=== PATIENT | female | born 1980 | race Caucasian/White ===

== ENCOUNTER 2023-06-10 11:10 | Emergency (ER) | payer OTHER ==
[2023-06-10 11:27] VITALS: TEMP 98.6; BMI 25.7
[2023-06-10] MEDS ORDERED: ALPRAZolam 0.25 MG TABLET ONE (11:56)
[2023-06-10] MEDS: ALPRAZolam 0.25 MG TABLET PO ONE (12:04)
[2023-06-10 13:48] VITALS: BP 130/80; PULSE 78; RESP 14
== END 2023-06-10 13:49 | disposition home or self-care (01) ==
LOC: JER 11:10
DX: R00.2 Palpitations (principal); F41.9 Anxiety disorder, unspecified
CPT/HCPCS: 93005; 93010; 99283-25

== ENCOUNTER 2023-06-18 12:19 | Emergency (ER) | payer OTHER ==
[2023-06-18 12:24] VITALS: TEMP 98; BMI 25.6
[2023-06-18 14:22] LABS: BASO % 0.8 % (0-2.0); EOS % 0.8 % (0-4.5); HEMATOCRIT 40.3 % (32.4-45.2); HEMOGLOBIN 13.1 GM/dL (10.7-15.3); LYMPH % 15.4 % (8-40); MCH 26.4 pg (25.7-33.7); MCHC 32.6 g/dl (32.0-36.0); MEAN PLT VOLUME 7.9 fl (7.5-11.1); MONO % 4.6 % (3.8-10.2); NEUT % 78.4 % (42.8-82.8); PLATELET COUNT 434 10^3/uL (134-434); RBC 4.98 M/mm3 (3.60-5.2); RDW 15.9 % (11.6-15.6); WHITE BLOOD COUNT 9.6 K/mm3 (4.0-10.0)
[2023-06-18 15:05] LABS: ALBUMIN 3.8 g/dl (3.4-5.0); BLOOD UREA NITROGEN 15.7 mg/dL (7-18)
[2023-06-18 15:08] LABS: CREATININE 0.8 mg/dL (0.55-1.3); INR 1.14 (0.83-1.09); PROTHROMBIN TIME (PATIENT) 13.2 SEC (9.7-13.0)
[2023-06-18 15:09] LABS: ACTIVATED PTT 28.9 SECONDS (25.2-36.5); BILIRUBIN,TOTAL 0.3 mg/dL (0.2-1); TOT PROT 7.8 g/dl (6.4-8.2)
[2023-06-18 15:54] VITALS: BP 129/75; RESP 14
[2023-06-21 10:19] VITALS: PULSE 98
== END 2023-06-18 15:54 | disposition home or self-care (01) ==
LOC: JER 12:19
DX: R00.2 Palpitations (principal); R53.1 Weakness
CPT/HCPCS: 36415; 80053; 84439; 84443; 85025; 85610; 85730; 93005; 93010; 99284-25

== ENCOUNTER 2023-06-20 20:53 | Emergency (ER) | payer OTHER ==
[2023-06-20 21:12] VITALS: BMI 25.6
[2023-06-20 22:12] LABS: BASO % 0.5 % (0-2.0); EOS % 0.6 % (0-4.5); HEMATOCRIT 37.8 % (32.4-45.2); HEMOGLOBIN 12.5 GM/dL (10.7-15.3); LYMPH % 16.7 % (8-40); MCH 26.6 pg (25.7-33.7); MEAN CELL VOLUME 80.5 fl (80-96); MONO % 6.4 % (3.8-10.2); NEUT % 75.8 % (42.8-82.8); PLATELET COUNT 441 10^3/uL (134-434); RDW 15.7 % (11.6-15.6); WHITE BLOOD COUNT 11.8 K/mm3 (4.0-10.0)
[2023-06-20] MEDS ORDERED: ACETAMINOPHEN 500 MG TABLET (FP) ONE (22:26)
[2023-06-20] MEDS: ACETAMINOPHEN 500 MG TABLET (FP) PO ONE (22:28)
[2023-06-20 22:33] LABS: POTASSIUM 4.1 mmol/L (3.5-5.1)
[2023-06-20 22:35] LABS: CALCIUM 9.4 mg/dL (8.5-10.1)
[2023-06-20 22:36] LABS: ALBUMIN 3.9 g/dl (3.4-5.0); BLOOD UREA NITROGEN 9.6 mg/dL (7-18)
[2023-06-20 22:39] LABS: CREATININE 0.7 mg/dL (0.55-1.3); INR 1.2 (0.83-1.09); PROTHROMBIN TIME (PATIENT) 13.9 SEC (9.7-13.0)
[2023-06-20 22:40] LABS: BILIRUBIN,TOTAL 0.3 mg/dL (0.2-1)
[2023-06-20 22:41] LABS: TOT PROT 7.7 g/dl (6.4-8.2)
[2023-06-20 22:42] LABS: ACTIVATED PTT 28.5 SECONDS (25.2-36.5)
[2023-06-21 01:00] VITALS: BP 119/67; PULSE 81; RESP 81; TEMP 97.8
== END 2023-06-21 02:07 | disposition home or self-care (01) ==
LOC: JER 20:53
DX: R07.9 Chest pain, unspecified (principal)
CPT/HCPCS: 36415; 71045-TC-FY; 71275-TC; 80053; 83690; 83735; 84439; 84443; 84484; 85025; 85379; 85610; 85730; 86850; 86900; 86901; 93005; 93010; 99285-25; Q9967

== ENCOUNTER 2023-12-04 04:41 | Day surgery (SDC) | payer OTHER ==
[2023-12-04] MEDS ORDERED: ACETAMINOPHEN 500 MG TABLET (FP) ONE (06:46)
[2023-12-04] MEDS ORDERED: ceFAZolin SODIUM 1 GM VIAL ONE (06:48)
[2023-12-04] MEDS: GABAPENTIN 300 MG CAPSULE PO ONE (07:01)
[2023-12-04] MEDS: PHENAZOPYRIDINE HCL 100 MG TABLET (FP) PO ONE (07:01)
[2023-12-04] MEDS: ACETAMINOPHEN 500 MG TABLET (FP) PO ONE (07:01)
[2023-12-04] MEDS ORDERED: ROCURONIUM BROMIDE 50 MG/5 ML SYRINGE ONE ×3 (07:25→09:15)
[2023-12-04] MEDS ORDERED: PROPOFOL 20 ML ONE ×2 (07:25→08:08)
[2023-12-04] MEDS ORDERED: MIDAZOLAM HCL 2 MG/2 ML SINGLE DOSE VIAL ONE (07:26)
[2023-12-04] MEDS: ceFAZolin SODIUM 1 GM VIAL IVPB ONE (08:00)
[2023-12-04] MEDS ORDERED: SUCCINYLCHOLINE CHLORIDE 200 MG/10 ML SYRINGE ONE (09:12)
[2023-12-04] MEDS ORDERED: SUGAMMADEX SODIUM 200 MG/2 ML VIAL ONE (09:18)
[2023-12-04] MEDS ORDERED: HYDROmorphone HCl 2 MG/ML VIAL ONE (09:25)
[2023-12-04] MEDS ORDERED: ONDANSETRON 4 MG/2 ML VIAL IVPUSH PRN ×2 (10:09→10:10)
[2023-12-04] MEDS ORDERED: oxyCODONE HCL 5 MG TABLET PO PRN ×2 (10:10)
[2023-12-04] MEDS ORDERED: BISACODYL 5 MG TABLET.DR (FP) PO PRN (10:10)
[2023-12-04] MEDS ORDERED: ZOLPIDEM TARTRATE 5 MG TABLET PO PRN (10:13)
[2023-12-04] MEDS: CEFAZOLIN SODIUM 2 GM in DEXTROSE 5%-WATER 100 ML IVPB ONE (11:02)
[2023-12-04] MEDS: ACETAMINOPHEN 325 MG TABLET (FP) PO SCH (11:52)
[2023-12-04] MEDS: LACTATED RINGERS SOLUTION 1,000 ML IV SCH (11:54)
[2023-12-04] MEDS: IBUPROFEN 800 MG/8 ML IJ IVPB SCH (13:53)
[2023-12-04] MEDS: CEFAZOLIN 1 GM in DEXTROSE 5%-WATER 100 ML IVPB SCH (18:04)
[2023-12-04 19:46] LABS: HEMATOCRIT 33.4 % (32.4-45.2); HEMOGLOBIN 10.9 GM/dL (10.7-15.3); MCH 25.8 pg (25.7-33.7); MCHC 32.5 g/dl (32.0-36.0); MEAN CELL VOLUME 79.1 fl (80-96); PLATELET COUNT 424 10^3/uL (134-434); RBC 4.22 M/mm3 (3.60-5.2); WHITE BLOOD COUNT 9.5 K/mm3 (4.0-10.0)
[2023-12-04 20:03] LABS: POTASSIUM 4.1 mmol/L (3.5-5.1)
[2023-12-04 20:05] LABS: CALCIUM 8.9 mg/dL (8.5-10.1)
[2023-12-04 20:06] LABS: BLOOD UREA NITROGEN 10.6 mg/dL (7-18)
[2023-12-04 20:09] LABS: CREATININE 0.9 mg/dL (0.55-1.3)
[2023-12-04] MEDS: SIMETHICONE 80 MG TAB.CHEW (FP) PO PRN (21:22)
[2023-12-04] MEDS: DOCUSATE SODIUM 100 MG CAPSULE (FP) PO PRN (21:22)
[2023-12-05 07:50] LABS: HEMATOCRIT 31.8 % (32.4-45.2); HEMOGLOBIN 10.3 GM/dL (10.7-15.3); MCH 25.3 pg (25.7-33.7); MCHC 32.2 g/dl (32.0-36.0); MEAN CELL VOLUME 78.5 fl (80-96); MEAN PLT VOLUME 8.4 fl (7.5-11.1); PLATELET COUNT 365 10^3/uL (134-434); RBC 4.05 M/mm3 (3.60-5.2); RDW 16.1 % (11.6-15.6); WHITE BLOOD COUNT 7.8 K/mm3 (4.0-10.0)
[2023-12-05 08:55] LABS: CREATININE 0.6 mg/dL (0.55-1.3)
[2023-12-05 09:09] LABS: POTASSIUM 3.9 mmol/L (3.5-5.1)
[2023-12-05 09:22] LABS: BLOOD UREA NITROGEN 8.7 mg/dL (7-18); CALCIUM 8.8 mg/dL (8.5-10.1)
[2023-12-05] MEDS: ENOXAPARIN NA (PORCINE) 40 MG/0.4 ML DISP.SYRIN SQ SCH (11:00)
[2023-12-05 12:05] VITALS: BP 115/67; PULSE 74; RESP 14; TEMP 97.5
== END 2023-12-05 15:00 | disposition home or self-care (01) ==
LOC: JASUSAT 04:41 → J3W 12:15 → JASUSAT 12-05 15:00
PROVIDERS: ATTEND Obstetrics & Gynecology
PROC: 8E0W4CZ Robotic Assisted Procedure of Trunk Region, Percutaneous Endoscopic Approach (ICD-10-PCS; 2023-12-04)
PROC: 0UT9FZZ Resection of Uterus, Via Natural or Artificial Opening With Percutaneous Endoscopic Assistance (ICD-10-PCS; 2023-12-04)
PROC: 0UT7FZZ Resection of Bilateral Fallopian Tubes, Via Natural or Artificial Opening With Percutaneous Endoscopic Assistance (ICD-10-PCS; 2023-12-04)
PROC: 8E0W4CZ Robotic Assisted Procedure of Trunk Region, Percutaneous Endoscopic Approach (ICD-10-PCS; 2023-12-04)
PROC: 0UT94ZZ Resection of Uterus, Percutaneous Endoscopic Approach (ICD-10-PCS; principal; 2023-12-04 07:30)
PROC: 0UT74ZZ Resection of Bilateral Fallopian Tubes, Percutaneous Endoscopic Approach (ICD-10-PCS; 2023-12-04 07:30)
DX: D25.1 Intramural leiomyoma of uterus (principal); D25.2 Subserosal leiomyoma of uterus; N80.03 Adenomyosis of the uterus; N83.292 Other ovarian cyst, left side; N83.291 Other ovarian cyst, right side
CPT/HCPCS: 58552; S2900; 36415; 80048; 81025; 85027; 86850; 86900; 86901; 88305-TC; 88307-TC; 94010; 94760